=== PATIENT | male | born 1960 | race Caucasian/White ===

== ENCOUNTER 2018-02-27 01:10 | Emergency (ER) | payer MEDICAID, BC, OTHER ==
[2018-02-27] MEDS ORDERED: KETOROLAC 30 MG INJ (02:15)
[2018-02-27] MEDS: KETOROLAC 30 MG INJ IV (02:26)
[2018-02-27] MEDS: CLINDAMYCIN 600 MG/D5W (PMX) 50 ML IVPB (02:34)
== END 2018-02-27 03:05 | disposition home or self-care (01) ==
LOC: FTE 01:10
DX: L02.413 Cutaneous abscess of right upper limb (principal)
CPT/HCPCS: 96374; 96375; 99284-25